=== PATIENT | female | born 1940 | race Caucasian/White ===

== ENCOUNTER 2017-06-09 23:07 | Emergency (ER) | payer MEDICARE, OTHER ==
[2017-06-09 23:44] LABS: HEMOGLOBIN 12.6 g/dL (12-16); LYMPHOCYTES 26.8 % (15-50); MCH 29.8 pg (26.0-34.0); MCHC 33.2 g/dL (31.0-37.0); MCV 89.8 fL (80.0-100.0); MEAN PLATELET VOLUME 9.9 fL (7.4-10.4); NEUTROPHILS 63.4 % (40-80); PLATELET COUNT 184 10x3/uL (130-400); RBC 4.23 10x6/uL (4.00-5.40); RDW 13.9 % (11.5-14.5)
[2017-06-09 23:58] LABS: ALBUMIN 3.6 g/dL (3.4-5.0); ANION GAP 11.4 mmol/L (8-16); BILIRUBIN - TOTAL 0.39 mg/dL (0.2-1.3); CALCIUM 8.8 mg/dL (8.5-10.1); CARBON DIOXIDE 27.2 mmol/L (21.0-32.0); CREATININE - SERUM 0.9 mg/dL (0.6-1.3); POTASSIUM - SERUM 3.6 mmol/L (3.5-5.1); PROTEIN - SERUM 6.9 g/dL (6.4-8.2)
== END 2017-06-10 01:18 | disposition home or self-care (01) ==
LOC: D.ER 23:07
PROVIDERS: Family Medicine
DX: L50.9 Urticaria, unspecified (principal); T78.40XA Allergy, unspecified, initial encounter; X58.XXXA Exposure to other specified factors, initial encounter

== ENCOUNTER → 2018-03-10 15:22 | Outpatient (CLI) | payer MEDICARE, OTHER | END | disposition home or self-care (01) | LOC: D.MRI 15:00 | DX: M54.16 Radiculopathy, lumbar region (principal) ==

== ENCOUNTER → 2018-05-18 18:14 | Outpatient (CLI) | payer MEDICARE, OTHER | END | disposition home or self-care (01) | LOC: D.MAMMO 14:45 | DX: Z12.31 Encounter for screening mammogram for malignant neoplasm of breast (principal) ==

== ENCOUNTER → 2018-06-16 15:01 | Outpatient (CLI) | payer MEDICARE, OTHER | END | disposition home or self-care (01) | LOC: D.CT 06-15 13:00 | DX: R10.9 Unspecified abdominal pain (principal) ==

== ENCOUNTER 2018-06-28 08:00 | Outpatient (CLI) | payer MEDICARE, OTHER | END 2018-06-28 09:00 | disposition home or self-care (01) | LOC: D.MAMMO 08:00 | DX: R92.0 Mammographic microcalcification found on diagnostic imaging of breast (principal) ==

== ENCOUNTER 2020-04-05 08:00 | Outpatient (CLI) | payer MEDICARE | END 2020-04-05 15:16 | disposition home or self-care (01) | LOC: D.MAMMO 08:00 | PROVIDERS: ATTEND Family Medicine | DX: Z12.31 Encounter for screening mammogram for malignant neoplasm of breast (principal) ==